=== PATIENT | female | born 1995 | race Caucasian/White ===

== ENCOUNTER 2020-04-04 09:42 | Outpatient (CLI) | payer OTHER ==
[2020-04-04 10:23] LABS: T.VAGINALIS (WET MOUNT) NO TRICHOMONAS SEEN; YEAST (WET MOUNT) NO YEAST SEEN
[2020-04-04 10:24] LABS: BACTERIA (WET MOUNT) 4+ BACTERIA SEEN; EPITHELIALS (WET MOUNT) 4+ EPITHELIALS SEEN; RBCS (WET MOUNT) 1+ RBCS SEEN; WBCS (WET MOUNT) 4+ WBCS SEEN
[2020-04-04 10:27] LABS: APPEARANCE,URINE CLOUDY; BILIRUBIN,URINE NEGATIVE (NEGATIVE); COLOR,URINE AMBER; GLUCOSE, URINE NEGATIVE (NEGATIVE); KETONES,URINE NEGATIVE (NEGATIVE); LEUKOCYTE ESTERASE,URINE MODERATE (NEGATIVE); NITRITE,URINE NEGATIVE (NEGATIVE); PROTEIN,URINE 100 mg/dL (NEGATIVE); URINE SPECIFIC GRAVITY 1.027; UROBILINOGEN,URINE NEGATIVE mg/dL (<2.0)
[2020-04-04] MEDS ORDERED: RINGERS SOLUTION,LACTATED 1,000 ML IV PRN (10:39)
[2020-04-04] MEDS ORDERED: CEFTRIAXONE INJ 1000 MG VIAL IV ONE (10:39)
[2020-04-04 10:41] LABS: URINE AMPHETAMINES SCREEN NEGATIVE; URINE BARBITURATES SCREEN NEGATIVE; URINE BENZODIAZEPINES SCREEN NEGATIVE; URINE COCAINE SCREEN NEGATIVE; URINE MARIJUANA (THC) SCREEN NEGATIVE; URINE METHADONE SCREEN NEGATIVE; URINE PHENCYCLIDINE SCREEN NEGATIVE
[2020-04-04] MEDS ORDERED: CEFTRIAXONE INJ 1000 MG VIAL ONE (10:48)
[2020-04-04 12:09] LABS: CHLAM PCR NOT DETECTED (NOT DETECT)
== END 2020-04-04 12:20 | disposition home or self-care (01) ==
LOC: LC 09:42
PROVIDERS: ATTEND Obstetrics & Gynecology
DX: O23.42 Unspecified infection of urinary tract in pregnancy, second trimester (principal); Z3A.26 26 weeks gestation of pregnancy
CPT/HCPCS: 87210; 81001; 80307; 87491; 87591; 59899; J0696; 87086

== ENCOUNTER 2020-06-03 11:41 | Outpatient (CLI) | payer OTHER ==
[2020-06-03 12:18] LABS: APPEARANCE,URINE CLOUDY; BILIRUBIN,URINE NEGATIVE (NEGATIVE); COLOR,URINE YELLOW; GLUCOSE, URINE NEGATIVE (NEGATIVE); KETONES,URINE NEGATIVE (NEGATIVE); LEUKOCYTE ESTERASE,URINE LARGE (NEGATIVE); NITRITE,URINE NEGATIVE (NEGATIVE); PROTEIN,URINE 30 mg/dL (NEGATIVE); URINE SPECIFIC GRAVITY 1.021; UROBILINOGEN,URINE NEGATIVE mg/dL (<2.0)
[2020-06-03 12:42] LABS: URINE AMPHETAMINES SCREEN NEGATIVE; URINE BARBITURATES SCREEN NEGATIVE; URINE BENZODIAZEPINES SCREEN NEGATIVE; URINE COCAINE SCREEN NEGATIVE; URINE MARIJUANA (THC) SCREEN NEGATIVE; URINE METHADONE SCREEN NEGATIVE; URINE PHENCYCLIDINE SCREEN NEGATIVE
[2020-06-03 12:53] LABS: BACTERIA (WET MOUNT) 4+ BACTERIA SEEN; EPITHELIALS (WET MOUNT) 3+ EPITHELIALS SEEN; T.VAGINALIS (WET MOUNT) NO TRICHOMONAS SEEN; WBCS (WET MOUNT) 1+ WBCS SEEN; YEAST (WET MOUNT) NO YEAST SEEN
--- NOTE | 2020-06-03 14:10 | Non Stress Test Report ---
Non Stress Test Datetime Report Generated by CPN: 06/03/2020 14:10 DEMOGRAPHIC EGA NST: 34.5 INDICATION Indication for Study (NST) Other: ctx MONITORING Monitor Explained: Monitor Explained; Test Explained; Patient Verbalized Understanding Time on Monitor: 06/03/2020 12:40 Time off Monitor: 06/03/2020 13:00 NST Duration: 20 NST INTERVENTIONS NST Interventions: None Physician Notified NST: K Bland CNM BABY A: [id number] BABY A Movement : Present Contraction Frequency : irregular FHR Baseline : 115 Accelerations : 15X15 Decelerations : None Variability : Moderate 6-25bpm NST Review: Meets Criteria for Reactive NST NST Review and Verified By : Marissa Roman, RN NST Results: Reactive NST REPORT Report Trigger: Send Report
[2020-06-03 14:17] LABS: CHLAM PCR NOT DETECTED (NOT DETECT)
== END 2020-06-03 14:35 | disposition home or self-care (01) ==
LOC: LC 11:41
PROVIDERS: ATTEND Obstetrics & Gynecology Gynecology
DX: O47.03 False labor before 37 completed weeks of gestation, third trimester (principal); Z3A.34 34 weeks gestation of pregnancy; Z02.83 Encounter for blood-alcohol and blood-drug test
CPT/HCPCS: 59025; 80307; 81005; 87086; 87210; 87491; 87591

== ENCOUNTER 2020-07-04 11:48 | Inpatient (IN) | payer OTHER ==
[2020-07-04] MEDS ORDERED: LIDOCAINE 1% INJ-PF (10 MG/ML) 30 ML SDV ONE (12:05)
[2020-07-04] MEDS ORDERED: OXYTOCIN 10 UNIT/ML VIAL ONE (12:05)
[2020-07-04] MEDS ORDERED: OXYTOCIN/0.9 % SODIUM CHLORIDE 30 UNIT/500 ML RTUINJ ONE (12:05)
[2020-07-04] MEDS ORDERED: MISOPROSTOL 0.2 MG TABLET ONE (12:05)
[2020-07-04] MEDS ORDERED: RINGERS SOLUTION,LACTATED 500 ML IV ONE (12:06)
[2020-07-04] MEDS ORDERED: RINGERS SOLUTION,LACTATED 1,000 ML IV ONE (12:06)
--- NOTE | 2020-07-04 12:16 | Admission Physical ---
Datetime Report Generated by CPN: 07/04/2020 12:16 CURRENT ADMISSION Chief Complaint: Uterine Contractions Indication for Induction: Not Applicable Admit Impression : Term, Intrauterine Admit Plan: Admit to Unit; Initiate Labor Protocol Admit Plan- Other: wants epidural ALLERGIES Medication Allergies: No Medication Allergies: No Known Allergies (06/03/2020) Latex: No Latex Allergies OBSTETRICAL HISTORY EDC: 07/10/2020 00:00 : 1 Para: 0 Term: 0 : 0 SAB: 0 IAB: 0 Ectopic: 0 Cesareans: 0 VBACs: 0 Multiple Births: 0 Rh Sensitization: No MARCOS: No Uterine Anomaly: No Hx Previous C/S: No Hx Loss/Stillborn: No (Annotations: Data stored by N on behalf of user) Hx : No Depression/PP Depression: No Post Hemorrhage: No Obstetrical History Comments: G1- current MEDICAL HISTORY Psychiatric Disorders: Yes Medical History Comments: anxiety depression- on lexapro, PHYSICAL EXAM General: Normal HEENT: Normal Neurologic: Normal Thyroid: Normal Heart: Normal Lungs: Normal Breast: Normal Back: Normal Abdomen: Normal Genitourinary Exam: Normal Extremities: Normal DTRs: Normal Pelvic Type: Adequate Vital Signs: Reviewed VAGINAL EXAM Dilatation: 10 Effacement: 100 Station: -1 MEMBRANES Pooling: Negative Membranes: Intact FETUS A EGA: 39.1 Monitoring: External US FHR- Baseline: 130 Variability: Moderate 6-25bpm Accelerations: 15X15 Decelerations: None FHR Category: Category I Estimated Weight (gm): 2500 Presentation: Vertex PLANS FOR LABOR AND DELIVERY Circumcision: N/A INFORMED CONSENT Signature: with User ID: Herbert
[2020-07-04 12:44] LABS: ABSOLUTE BASOPHILS # (AUTO) 0.1 10^3/uL (0.0-0.2); ABSOLUTE LYMPHOCYTES (AUTO) 1.2 10^3/uL (0.5-4.7); ABSOLUTE MONOCYTES (AUTO) 0.9 10^3/uL (0.1-1.4); ABSOLUTE NEUT (AUTO) 7.7 10^3/uL (1.7-8.2); BASOPHILS % (AUTO) 0.7 % (0-2); EOSINOPHILS % (AUTO) 0.3 % (0-6); HEMATOCRIT 34.7 % (36.0-47.0); HEMOGLOBIN 11.7 g/dL (12.0-15.5); LYMPHOCYTES % (AUTO) 11.9 % (13-45); MEAN CORPUSCULAR HEMOGLOBIN 26.5 pg (27.0-33.4); MEAN CORPUSCULAR HGB CONC 33.6 g/dL (32.0-36.0); MEAN CORPUSCULAR VOLUME 79 fl (80-97); MONOCYTES % (AUTO) 9.6 % (3-13); PLATELET COUNT 314 10^3/uL (150-450); RED CELL DISTRIBUTION WIDTH 16.6 % (11.5-14.0); SEGMENTED NEUTROPHILS % (AUTO) 77.5 % (42-78); TOTAL CELLS COUNTED % (AUTO) 100 %; WHITE BLOOD COUNT 9.9 10^3/uL (4.0-10.5)
[2020-07-04] MEDS ORDERED: PROMETHAZINE HCL INJ 25 MG/1 ML VIAL ONE (13:03)
[2020-07-04] MEDS ORDERED: MEPERIDINE HCL/PF INJ 25 MG/1 ML DISP.SYRIN ONE ×2 (13:03→13:06)
[2020-07-04] MEDS ORDERED: GLYCERIN/WITCH HAZEL LEAF 1 EACH MED..WIPE TP PRN (13:34)
[2020-07-04] MEDS ORDERED: PSEUDOEPHEDRINE HCL 30 MG TABLET PO PRN (13:34)
[2020-07-04] MEDS ORDERED: MAG HYDROX/AL HYDROX/SIMETH SUSP 30 ML UDCUP PO PRN (13:34)
[2020-07-04] MEDS ORDERED: DIBUCAINE 1% OINTMENT 28 GM TP PRN (13:34)
[2020-07-04] MEDS ORDERED: DIPH/PERTUSS(ACELL)/TETANUS VAC/PF 0.5 ML SYR (>=10YO) IM PRN (13:34)
[2020-07-04] MEDS ORDERED: FAMOTIDINE 20 MG TABLET PO PRN (13:34)
[2020-07-04] MEDS ORDERED: MEASLES,MUMPS&RUBELLA VACC/PF 0.5 ML VIAL SUBCUT PRN (13:34)
[2020-07-04] MEDS ORDERED: VARICELLA VACC/PF (1350 UNIT/0.5 ML) 0.5 ML VIAL SUBCUT PRN (13:34)
[2020-07-04] MEDS ORDERED: OXYTOCIN/0.9 % SODIUM CHLORIDE 30 UNIT/500 ML RTUINJ IV PRN (13:34)
[2020-07-04] MEDS ORDERED: BENZOCAINE/MENTHOL AEROSOL SPRAY 56 ML TOP PRN (13:34)
[2020-07-04] MEDS ORDERED: ACETAMINOPHEN WITH CODEINE #3 TABLET PO PRN (13:34)
[2020-07-04] MEDS ORDERED: MAGNESIUM HYDROXIDE SUSP 30 ML UDCUP PO PRN (13:34)
[2020-07-04] MEDS ORDERED: ACETAMINOPHEN 325 MG TABLET PO PRN (13:34)
[2020-07-04] MEDS ORDERED: ACETAMINOPHEN 650 MG SUPP.RECT PR PRN (13:34)
[2020-07-04] MEDS ORDERED: DIPHENHYDRAMINE HCL 25 MG CAPSULE PO PRN (13:34)
[2020-07-04] MEDS ORDERED: ZOLPIDEM TARTRATE 5 MG TABLET PO PRN (13:34)
[2020-07-04] MEDS ORDERED: BENZOCAINE/MENTHOL AEROSOL SPRAY 56 ML ONE (15:27)
[2020-07-04] MEDS ORDERED: ACETAMINOPHEN WITH CODEINE #3 TABLET ONE (15:27)
[2020-07-04] MEDS ORDERED: IBUPROFEN 800 MG TABLET ONE (15:27)
[2020-07-04] MEDS ORDERED: AMMONIA INHALANTS 10 AMPUL/BOX IH ONE (15:28)
[2020-07-04] MEDS: IBUPROFEN 800 MG TABLET PO SCH ×2 (17:08→22:42)
[2020-07-04] MEDS: ALBUTEROL SULFATE HFA (90 MCG/PUFF) 8 GM MDI IH SCH ×3 (17:43→22:44)
[2020-07-04] MEDS ORDERED: FERROUS SULFATE 325 MG TABLET PO ONE (18:02)
[2020-07-04] MEDS ORDERED: DOCUSATE SODIUM 100 MG CAPSULE ONE (18:02)
[2020-07-04] MEDS: DOCUSATE SODIUM 100 MG CAPSULE PO SCH (18:11)
[2020-07-04] MEDS: FERROUS SULFATE 325 MG TABLET PO SCH (18:11)
[2020-07-04 18:25] LABS: APPEARANCE,URINE CLEAR; BILIRUBIN,URINE NEGATIVE (NEGATIVE); COLOR,URINE YELLOW; GLUCOSE, URINE NEGATIVE (NEGATIVE); KETONES,URINE 20 mg/dL (NEGATIVE); LEUKOCYTE ESTERASE,URINE NEGATIVE (NEGATIVE); NITRITE,URINE NEGATIVE (NEGATIVE); PROTEIN,URINE NEGATIVE (NEGATIVE); URINE SPECIFIC GRAVITY 1.009; UROBILINOGEN,URINE NEGATIVE mg/dL (<2.0)
--- NOTE | 2020-07-04 18:43 | Birth Certificate Data ---
Cert Data Datetime Report Generated by CPN: 07/04/2020 18:42 CERTIFICATE DATA Delivery Provider: Ashley Christianson MD (04/04/2020 09:45:Anson Hernandez RN) 47a. Care: No (04/04/2020 09:45:Court Rodriguez RN) 47b. Date of First Visit: 12/26/2019 00:00 (04/04/2020 09:45:Court Rodriguez RN) 47c. Date of Last Visit: 06/28/2020 00:00 (04/04/2020 09:45:Anson Hernandez RN) 47d. Number of Visits: 9 (04/04/2020 09:45:Anson Hernandez RN) 48a. Number of Prev Live Births: 0 (04/04/2020 09:45:Anson Hernandez RN) 48b. Now Livin (04/04/2020 09:45:Anson Hernandez RN) 48c. Live Births Now : 0 (04/04/2020 09:45:QS system process) 48e. Losses: 0 (04/04/2020 09:45:Anson Hernandez RN) RISK FACTORS IN THIS 49a. Diabetes: No (04/04/2020 09:45:Court Rodriguez RN) 49b. Hypertension: No (04/04/2020 09:45:Court Rodriguez RN) 49c. Previous Births: 0 (04/04/2020 09:45:Anson Hernandez RN) 49d. Stillborns: No (Annotations: Data stored by N on behalf of user) (04/04/2020 09:45:Court Rodriguez RN) 49d. IUGR: No (04/04/2020 09:45:Court Rodriguez RN) 49e. Infertility Treatment: No (04/04/2020 09:45:Court Rodriguez RN) 49f. Previous Cesareans: 0 (04/04/2020 09:45:Anson Hernandez RN) Mother's Height 50b. Height Inches: 63 (07/04/2020 16:48:QS system process) Mother's Weight 51a. Pre- Weight (lbs): 92 (04/04/2020 09:45:Court Rodriguez RN) 51b. Weight at Delivery (lbs): 117 (07/04/2020 16:48:QS system process) 52. Dt Last Normal Menses Began: 09/23/2019 00:00 (04/04/2020 09:45:Court Rodriguez RN) Infections Present/Treated 53a. Gonorrhea: No (04/04/2020 09:45:Court Rodriguez RN) Results this Hospital Visit : Negative (04/04/2020 09:45:Anson Hernandez RN) 53b. Syphilis: No (04/04/2020 09:45:Court Rodriguez RN) 53c. Chlamydia: No (04/04/2020 09:45:Court Rodriguez RN) Results this Hospital Visit: Negative (04/04/2020 09:45:Anson Hernandez RN) 53d. Hepatitis B: No (04/04/2020 09:45:Court Rodriguez RN) Results this Hospital Visit: Negative (04/04/2020 09:45:Court Rodriguez RN) 53e. Hepatitis C: Negative (04/04/2020 09:45:Court Rodriguez RN) 53h. Mother Tested for HBsAG: Yes (04/04/2020 09:45:Court Rodriguez RN) 53i. Date Tested: 12/26/2019 00:00 (04/04/2020 09:45:Court Rodriguez RN) 53j. Test Result: Negative (04/04/2020 09:45:Court Rodriguez RN) Obstetric Procedures 54a, b, c. Obstetric Procedures: Ultrasound (04/04/2020 09:45:Court Rodriguez RN) Cigarette Smoking Cigarette Smoking: Never Smoker. [id number] (04/04/2020 09:45:Anson Hernandez RN) 55a. 3 Months Before Preg - Ci (04/04/2020 09:45:Anson Hernandez RN) 55a. Packs: 0 (04/04/2020 09:45:Anson Hernandez RN) 55b. 1st Trimester of Preg- Ci (04/04/2020 09:45:Anson Hernandez RN) 55b. Packs: 0 (04/04/2020 09:45:Anson Hernandez RN) 55c. 2nd Trimester of Preg- Ci (04/04/2020 09:45:Anson Hernandez RN) 55c. Packs: 0 (04/04/2020 09:45:Anson Hernandez RN) 55d. 3rd Trimester of Preg- Ci (04/04/2020 09:45:Anson Hernandez RN) 55d. Packs: 0 (04/04/2020 09:45:Anson Hernandez RN) Onset of Labor 56a. PROM >12 Hrs: 0.32 (04/04/2020 09:45:QS system process) 56b. Precipitous Labor <3 Hrs: 8 (04/04/2020 09:45:QS system process) 56c. Prolonged Labor > 20 Hrs: 8 (04/04/2020 09:45:QS system process) 57a. Induction of Labor: N/A (04/04/2020 09:45:Anson Hernandez RN) 57c. Non-Vertex Presentation A: Vertex (04/04/2020 09:45:Connie Cox RN) 57d. Steroids - Lung Mat: None (04/04/2020 09:45:Anson Hernandez RN) 57d. Steroids - Lung Mat: Not Applicable (04/04/2020 09:45:Anson Hernandez RN) 57f. Mat [place] or Temp >100.4: 98.4 (04/04/2020 09:45:Court Rodriguez RN) 57g. Moderate/Heavy Meconium: Heavy Meconium (04/04/2020 09:45:Connie Cox RN) 57h. Intolerance of Labor: N/A (04/04/2020 09:45:Court Rodriguez RN) : N/A (04/04/2020 09:45:Court Rodriguez RN) 57i. Epidural/Spinal Anesthesia: None (04/04/2020 09:45:Anson Hernandez RN) Method of Delivery 58a. Forceps - Unsuccessful A: N/A (04/04/2020 09:45:Anson Hernandez RN) 58b. Vacuum - Unsuccessful A: Successful (04/04/2020 09:45:Connie Cox RN) 58c. Presentation at 58c. Presentation at - A : Vertex (04/04/2020 09:45:Connie Cox RN) 58c. Presentation at - A : N/A (04/04/2020 09:45:Court Rodriguez RN) 58c. Presentation at - A : Cephalic (07/04/2020 12:03:Court Rodriguez RN) Final Route and Method of Del 58d. Baby A Route/Delivery: Vaginal (07/04/2020 12:58:Connie Cox RN) 58e. Trial of Labor Attempted: No (04/04/2020 09:45:Anson Hernandez RN) 58e. Trial of Labor Attempted A: N/A (04/04/2020 09:45:Anson Hernandez RN) 58e. Trial of Labor Attempted B: N/A (04/04/2020 09:45:Anson Hernandez RN) Maternal Morbidity 59b. 3rd or 4th Degree Lacs: Perineal; Vaginal (04/04/2020 09:45:Ashley Christianson MD (ANDDO)) Birthweight Baby A: 2985 (04/04/2020 09:45:Alexa Dye RN) 60a. Pounds : 6 (04/04/2020 09:45:QS system process) 60b. Ounces: 9 (04/04/2020 09:45:QS system process) 61. GA at Delivery Baby A: 39.1 (04/04/2020 09:45:Anson Hernandez RN) : Full Term- 39- 40.6 Weeks (04/04/2020 09:45:QS system process) 62a. 5 Minute Baby A: 8 (04/04/2020 09:45:QS system process)
--- NOTE | 2020-07-04 18:43 | Delivery Summary ---
Del Sum A-C Datetime Report Generated by CPN: 07/04/2020 18:42 DELIVERY PERSONNEL DELIVERY PERSONNEL: [id number] Delivery Doctor:: Ashley Christianson MD Labor and Delivery Nurse:: Court Rodriguez RNgeneral repairer Nurse:: Connie Cox RN Nursery Nurse:: Alexa Dye RN Leadership Development Consultant/POTATO PEELING MACHINE OPERATOR: Radha Martinez, CATERING OPERATIONS MANAGER MATERNAL INFORMATION Delivery Anesthesia: None Medications After Delivery: Pitocin Bolus-Please Comment; Pitocin 30 Units in 500ml NS/D5W Estimated Blood Loss (ml): 200 Delivery QBL: 200 Maternal Complications: Precipitous Labor (<3hrs) LABOR SUMMARY EDC: 07/10/2020 00:00 No. Babies in Womb: 1 Attempted: No Labor Anesthesia: None LABOR INFORMATION Reason for Induction: Not Applicable Onset of Labor: 07/04/2020 05:00 Complete Dilatation: 07/04/2020 12:35 Oxytocin: N/A Group B Beta Strep: negative Antibiotics # of Doses: 0 Name of Antibiotic Given: N/A Steroids Given: None Reason Steroids Not Administered: Not Applicable MEMBRANES Membranes Rupture Method: Artificial Rupture of Membranes: 07/04/2020 12:39 Length of Rupture (hr): 0.32 Amniotic Fluid Color: Heavy Meconium Amniotic Fluid Amount: Small Amniotic Fluid Odor: None STAGES OF LABOR Stage 1 hr: 7 Stage 1 min: 35 Stage 2 hr: 0 Stage 2 min: 23 Stage 3 hr: 0 Stage 3 min: 3 Total Time in Labor hr: 8 Total Time in Labor min: 1 VAGINAL DELIVERY Episiotomy: None Laceration #1: Perineal; Vaginal Laceration Extension #1: Third Degree, IIIa (Less than 50 percent ext anal sphincter thickness torn) Laceration Repair: Yes Laceration Repair Note: 2-0 chromic repair in normal fashion Sponge Count Correct: Yes Sharps Count Correct: Yes CSECTION DELIVERY Primary Indication: N/A Secondary Indication: N/A CSection Incidence: N/A Labor: N/A Elective: N/A CSection Incision: N/A BABY A INFORMATION Delivery Date/Time: 07/04/2020 12:58 Method of Delivery: Vaginal Nurse Controlled Delivery: No Born in Route : No : N/A Forceps: N/A Vacuum Extraction: Successful Shoulder Dystocia : No ASSISTED DELIVERY BABY A Catheter Prior to Procedure: Yes Vacuum Number of Pulls: 1 Vacuum Number of PopOffs: 1 Reduce Pressure btwn Ctx: Yes Vacuum Change Management Specialist: [place] PRESENTATION/POSITION BABY A Presentation: Cephalic Cephalic Presentation: Vertex Breech Presentation: N/A PLACENTA INFORMATION BABY A Placenta Delivery Time : 07/04/2020 13:01 Placenta Method of Delivery: Spontaneous Placenta Status: Delivered SCORES BABY A Heart Rate 1 min: Slow, Below 100 bpm Resp Effort 1 min: Good Cry Reflex Irritability 1 min: Cough or Sneeze or Pulls Away Muscle Tone 1 min: Some Flexion of Extremities Color 1 min: Body [place], Extremities Blue Resuscitation Effort 1 min: Tactile Stimulation SCORE 1 MIN: 7 Heart Rate 5 min: >100 bpm Resp Effort 5 min: Good Cry Reflex Irritability 5 min: [place] Muscle Tone 5 min: Some Flexion of Extremities Color 5 min: Completely [place] SCORE 5 MIN: 8 INFANT INFORMATION BABY A Gestational Age at Delivery: 39.1 Gestational Status: Full Term- 39- 40.6 Weeks Outcome : Liveborn Condition : Stable Infant Sex: Female IDENTIFICATION BABY A Infant Verification Date/Time: 07/04/2020 13:53 ID Band Number: [id number] Mother's Name Verified: Yes Infant RN Verifying Infant: CWilliam Rodriguez, RN; B. Josselindy, RN WEIGHT/LENGTH BABY A Birthweight (gm): 2985 Infant Weight (lb): 6 Infant Weight (oz): 9 Infant Length (in): 19.00 Infant Length (cm): 48.26 CORD INFORMATION BABY A No. Cord Vessels: 3 Nuchal Cord : Around Neck x2, Loose Cord Blood Taken: Yes-For Eval (Mom's Blood Type - or O+) Infant Suction: Mouth; Nose ASSESSMENT BABY A Complications: Meconium Skin to Skin: Yes Skin to Skin Time (min): 1 Infant Care By: Jen Marsh RN Transferred To: [facility] BABY B INFORMATION : N/A SIGNATURES Signature: with User ID: Herbert
[2020-07-04 18:59] LABS: URINE AMPHETAMINES SCREEN NEGATIVE; URINE BARBITURATES SCREEN NEGATIVE; URINE BENZODIAZEPINES SCREEN NEGATIVE; URINE COCAINE SCREEN NEGATIVE; URINE MARIJUANA (THC) SCREEN NEGATIVE; URINE METHADONE SCREEN NEGATIVE; URINE PHENCYCLIDINE SCREEN NEGATIVE
[2020-07-04] MEDS ORDERED: ESCITALOPRAM OXALATE 10 MG TABLET PO ONE (19:15)
[2020-07-04] MEDS: ACETAMINOPHEN WITH CODEINE #3 TABLET PO PRN (19:20)
[2020-07-04] MEDS ORDERED: ESCITALOPRAM OXALATE 10 MG TABLET PO SCH (20:00)
[2020-07-05] MEDS: ALBUTEROL SULFATE HFA (90 MCG/PUFF) 8 GM MDI IH SCH ×3 (02:44→09:51)
[2020-07-05] MEDS: ACETAMINOPHEN WITH CODEINE #3 TABLET PO PRN (03:43)
[2020-07-05] MEDS: IBUPROFEN 800 MG TABLET PO SCH ×3 (06:49→21:16)
[2020-07-05 07:33] LABS: HEMATOCRIT 28.7 % (36.0-47.0); MEAN CORPUSCULAR HEMOGLOBIN 26.6 pg (27.0-33.4); MEAN CORPUSCULAR HGB CONC 33.3 g/dL (32.0-36.0); MEAN CORPUSCULAR VOLUME 80 fl (80-97); PLATELET COUNT 258 10^3/uL (150-450); RED CELL DISTRIBUTION WIDTH 16.9 % (11.5-14.0)
[2020-07-05 07:48] LABS: HEMOGLOBIN 9.6 g/dL (12.0-15.5)
[2020-07-05] MEDS: PRENATAL VITAMIN W DHA CAPSULE PO SCH (09:40)
[2020-07-05] MEDS: DOCUSATE SODIUM 100 MG CAPSULE PO SCH ×2 (09:40→17:53)
[2020-07-05] MEDS: SENNOSIDES/DOCUSATE 8.6-50 MG 1 EACH TABLET PO SCH (09:40)
[2020-07-05] MEDS: FERROUS SULFATE 325 MG TABLET PO SCH ×2 (09:40→17:53)
[2020-07-05] MEDS ORDERED: ALBUTEROL SULFATE HFA (90 MCG/PUFF) 8 GM MDI IH PRN (11:30)
--- NOTE | 2020-07-05 11:39 | PDOC PROGRESS REPORT ---
Subjective-OB Progress Note for:: 07/05/20 Subjective: pt sitting on side of bed, turner out but not voiding, drinking alot of water, mother at BS holding baby, does not know why she is taking inhaler, does not feel like she needs it, , scant lochia, edema has decreased in labia Physical Exam (OB) Vital Signs: Temp Pulse Resp BP Pulse Ox 97.8 F 71 16 118/71 99 07/05/20 10:00 07/05/20 07:33 07/05/20 07:33 07/05/20 07:33 07/05/20 07:33 Intake & Output 07/04/20 07/05/20 07/06/20 06:59 06:59 06:59 Intake Total 240 380 Output Total 600 Balance 240 -220 Weight 53 kg - PIH/Pre-Eclampsia Clonus: Negative Headache: Absent Epigastric Pain: No Visual Changes: No - Maternal Morbidity 59. Maternal Morbidity (serious complications experinced by the mother associated with labor and delivery: Third or fourth degree perineal laceration - Lochia Lochia Amount: Scant < 10 ml Lochia Color: Rubra/Red - Abdomen Description: Soft Hernia Present: No Fundal Description: Firm, Midline Fundal Height: u/u - u/2 Objective-Diagnostic Laboratory: 07/05/20 07:08 07/04/20 07/04/20 07/04/20 12:00 12:25 12:25 WBC 9.9 RBC 4.40 Hgb 11.7 L Hct 34.7 L MCV 79 L MCH 26.5 L MCHC 33.6 RDW 16.6 H Plt Count 314 Seg Neutrophils % 77.5 Urine Color YELLOW Urine Appearance CLEAR Urine pH 8.0 Ur Specific [place] 1.009 Urine Protein NEGATIVE Urine Glucose (UA) NEGATIVE Urine Ketones 20 H Urine Blood LARGE H Urine Nitrite NEGATIVE Ur Leukocyte Esterase NEGATIVE Blood Type O POSITIVE Antibody Screen NEGATIVE 07/05/20 07:08 WBC 11.0 H RBC 3.60 L Hgb 9.6 L D Hct 28.7 L MCV 80 MCH 26.6 L MCHC 33.3 RDW 16.9 H Plt Count 258 Seg Neutrophils % Urine Color Urine Appearance Urine pH Ur Specific [place] Urine Protein Urine Glucose (UA) Urine Ketones Urine Blood Urine Nitrite Ur Leukocyte Esterase Blood Type Antibody Screen Assessment and Plan(PN) - Assessment and Plan (1) Anemia due to blood loss Is this a current diagnosis for this admission?: Yes (2) Meconium in amniotic fluid Is this a current diagnosis for this admission?: Yes (3) Factor V deficiency Is this a current diagnosis for this admission?: Yes (4) Third degree perineal laceration during delivery with less than 50% tear of external anal sphincter Is this a current diagnosis for this admission?: Yes (5) Vacuum extraction, delivered, current hospitalization Is this a current diagnosis for this admission?: Yes - Time Spent with Patient Time with patient: Less than 15 minutes Medications reviewed and adjusted accordingly: Yes - Disposition Anticipated Discharge Disposition: Home, Self Care Anticipated Discharge Timeframe: within 48 hours
[2020-07-05] MEDS ORDERED: ENOXAPARIN SODIUM INJ 40 MG/0.4 ML DISP.SYRIN SUBCUT SCH (14:00)
[2020-07-05] MEDS ORDERED: ESCITALOPRAM OXALATE 10 MG TABLET PO SCH (18:00)
[2020-07-06] MEDS: IBUPROFEN 800 MG TABLET PO SCH (05:57)
[2020-07-06] MEDS ORDERED: ESCITALOPRAM OXALATE 10 MG TABLET PO SCH (10:00)
[2020-07-06] MEDS ORDERED: ENOXAPARIN SODIUM INJ 40 MG/0.4 ML DISP.SYRIN SUBCUT SCH (10:00)
[2020-07-06] MEDS: FERROUS SULFATE 325 MG TABLET PO SCH (10:04)
[2020-07-06] MEDS: SENNOSIDES/DOCUSATE 8.6-50 MG 1 EACH TABLET PO SCH (10:05)
[2020-07-06] MEDS: DOCUSATE SODIUM 100 MG CAPSULE PO SCH (10:05)
[2020-07-06] MEDS: PRENATAL VITAMIN W DHA CAPSULE PO SCH (10:06)
--- NOTE | 2020-07-06 10:45 | PDOC DISCHARGE SUMMARY ---
Impression - Admit/DC Date/PCP Admission Date/Primary Care Provider: 07/04/20 12:09 JUSTIN MILNER MD Discharge Date: 07/06/20 - PP Day #2, doing well, VAD w/ 3rd degree laceration. O+ Rubella immune - Discharge Diagnosis (1) Anemia due to blood loss Is this a current diagnosis for this admission?: Yes (2) Factor V deficiency Is this a current diagnosis for this admission?: Yes (3) Meconium in amniotic fluid Is this a current diagnosis for this admission?: Yes (4) Third degree perineal laceration during delivery with less than 50% tear of external anal sphincter Is this a current diagnosis for this admission?: Yes (5) Vacuum extraction, delivered, current hospitalization Is this a current diagnosis for this admission?: Yes - Additional Information Resuscitation Status: Full Code Discharge Diet: As Tolerated Discharge Activity: Activity As Tolerated, No Lifting Over 10 Pounds, Pelvic Rest Referrals: JUSTIN MILNER MD [Primary Care Provider] - Prescriptions: Aspirin [Adult Low Dose Aspirin EC] 81 mg PO DAILY #30 tablet. Docusate Sodium [Colace 100 mg Capsule] 100 mg PO BID #60 capsule Ibuprofen [Motrin 800 mg Tablet] 800 mg PO Q8 #60 tablet Home Medications: Escitalopram Oxalate [Lexapro] 10 mg PO DAILY 04/04/20 Vits96/Iron Fum/Folic [ Tablet] 1 each PO DAILY 04/04/20 Aspirin [Adult Low Dose Aspirin EC] 81 mg PO DAILY #30 tablet. 07/06/20 Docusate Sodium [Colace 100 mg Capsule] 100 mg PO BID #60 capsule 07/06/20 Ibuprofen [Motrin 800 mg Tablet] 800 mg PO Q8 #60 tablet 07/06/20 HPI Reason(s) for Admission: Induction of Labor Intrapartum Procedure(s): Vacuum Extraction Complication(s): Laceration-Perineal Laceration-Degree: 3rd Hospital Course 59. Maternal Morbidity (serious complications experinced by the mother associated with labor and delivery: Third or fourth degree perineal laceration Results Laboratory Results: WBC 11.0 10^3/uL (4.0-10.5) H 07/05/20 07:08 RBC 3.60 10^6/uL (3.72-5.28) L 07/05/20 07:08 Hgb 9.6 g/dL (12.0-15.5) L D 07/05/20 07:08 Hct 28.7 % (36.0-47.0) L 07/05/20 07:08 MCV 80 fl (80-97) 07/05/20 07:08 MCH 26.6 pg (27.0-33.4) L 07/05/20 07:08 MCHC 33.3 g/dL (32.0-36.0) 07/05/20 07:08 RDW 16.9 % (11.5-14.0) H 07/05/20 07:08 Plt Count 258 10^3/uL (150-450) 07/05/20 07:08 Lymph % (Auto) 11.9 % (13-45) L 07/04/20 12:25 [place] % (Auto) 9.6 % (3-13) 07/04/20 12:25 Eos % (Auto) 0.3 % (0-6) 07/04/20 12:25 Baso % (Auto) 0.7 % (0-2) 07/04/20 12:25 Absolute Neuts (auto) 7.7 10^3/uL (1.7-8.2) 07/04/20 12:25 Absolute Lymphs (auto) 1.2 10^3/uL (0.5-4.7) 07/04/20 12:25 Absolute Monos (auto) 0.9 10^3/uL (0.1-1.4) 07/04/20 12:25 Absolute Eos (auto) 0.0 10^3/uL (0.0-0.6) 07/04/20 12:25 Absolute Basos (auto) 0.1 10^3/uL (0.0-0.2) 07/04/20 12:25 Seg Neutrophils % 77.5 % (42-78) 07/04/20 12:25 POC Glucose 124 mg/dL (70-110) H 07/04/20 15:35 Urine Color YELLOW 07/04/20 12:00 Urine Appearance CLEAR 07/04/20 12:00 Urine pH 8.0 (5.0-9.0) 07/04/20 12:00 Ur Specific [place] 1.009 07/04/20 12:00 Urine Protein NEGATIVE mg/dL (NEGATIVE) 07/04/20 12:00 Urine Glucose (UA) NEGATIVE mg/dL (NEGATIVE) 07/04/20 12:00 Urine Ketones 20 mg/dL (NEGATIVE) H 07/04/20 12:00 Urine Blood LARGE (NEGATIVE) H 07/04/20 12:00 Urine Nitrite NEGATIVE (NEGATIVE) 07/04/20 12:00 Urine Bilirubin NEGATIVE (NEGATIVE) 07/04/20 12:00 Urine Urobilinogen NEGATIVE mg/dL (<2.0) 07/04/20 12:00 Ur Leukocyte Esterase NEGATIVE (NEGATIVE) 07/04/20 12:00 Urine Ascorbic Acid NEGATIVE (NEGATIVE) 07/04/20 12:00 Urine Opiates Screen NEGATIVE 07/04/20 12:00 Urine Methadone Screen NEGATIVE 07/04/20 12:00 Ur Barbiturates Screen NEGATIVE 07/04/20 12:00 Ur Phencyclidine Scrn NEGATIVE 07/04/20 12:00 Ur Amphetamines Screen NEGATIVE 07/04/20 12:00 U Benzodiazepines Scrn NEGATIVE 07/04/20 12:00 Urine Cocaine Screen NEGATIVE 07/04/20 12:00 U Marijuana (THC) Screen NEGATIVE 07/04/20 12:00 RPR NONREACTIVE (NONREACTIVE) 07/04/20 12:25 Blood Type O POSITIVE 07/04/20 12:25 Antibody Screen NEGATIVE 07/04/20 12:25 Plan Plan of Treatment: d/c home, stool softener encouraged. pt to take a daily baby ASA for first 6 wks due to Factor V heterozygous per Dr Milner, f/up with [facility] in 4 wks Time Spent: Less than 30 Minutes
[2020-07-06 11:41] VITALS: BP 121/75
== END 2020-07-06 12:55 | disposition home or self-care (01) | DRG 768 ==
LOC: LC 11:48 → LR 12:09 → 2S 18:20
PROVIDERS: ADMIT Obstetrics & Gynecology; ATTEND Obstetrics & Gynecology
PROC: 10D07Z6 Extraction of Products of Conception, Vacuum, Via Natural or Artificial Opening (ICD-10-PCS; principal; 2020-07-04)
PROC: 0DQR0ZZ Repair Anal Sphincter, Open Approach (ICD-10-PCS; 2020-07-04)
DX: O99.344 Other mental disorders complicating childbirth (principal); O70.21 Third degree perineal laceration during delivery, IIIa; O99.12 Other diseases of the blood and blood-forming organs and certain disorders involving the immune mechanism complicating childbirth; D68.51 Activated protein C resistance; D62 Acute posthemorrhagic anemia; O69.81X0 Labor and delivery complicated by cord around neck, without compression, not applicable or unspecified; O77.0 Labor and delivery complicated by meconium in amniotic fluid; F41.9 Anxiety disorder, unspecified; F32.9 Major depressive disorder, single episode, unspecified; O62.3 Precipitate labor; Z3A.39 39 weeks gestation of pregnancy; O99.02 Anemia complicating childbirth; Z37.0 Single live birth
CPT/HCPCS: 36415; 80307; 81005; 82962; 85025; 85027; 86592; 86850; 86900; 86901; 94760; J1650; J2175; J2550; J2590; J3490